=== PATIENT | female | born 1980 | race Caucasian/White ===

== ENCOUNTER 2018-02-23 07:32 | Emergency (ER) | END 2018-02-23 08:08 | disposition home or self-care (01) ==

== ENCOUNTER 2018-03-06 23:59 | Emergency (ER) | END 2018-03-07 04:27 | disposition home or self-care (01) ==

== ENCOUNTER 2019-02-16 15:38 | Emergency (ER) | payer MEDICAID ==
[~2019-02-16] VITALS: Ht 167.6 cm; Wt 89.7 kg
[~2019-02-16 15:38] MED LIST: ACET-141 PO; ACET500C5 PO; ALBU8.5H8 INH; AMOX1TAB9 PO; AZIT250T PO; BENZ-6 PO; D-ME118S24 PO; GUAI-752 PO; IBUP-1561 PO; IBUP800T48 PO; ONDA4TAB8 PO; PROM6.2515 PO
[2019-02-16 15:49] VITALS: BP 147/79; PULSE 74; RESP 18; Ht 167.6 cm; Wt 89.7 kg
== END 2019-02-16 15:49 | disposition home or self-care (01) ==
LOC: E/R 15:38
DX: J06.9 Acute upper respiratory infection, unspecified (principal)
CPT/HCPCS: 99282